=== PATIENT | male | born 1955 | race Caucasian/White ===

== ENCOUNTER 2021-09-13 09:37 | Emergency (ER) | payer MEDICARE, OTHER ==
[2021-09-13] MEDS ORDERED: DEXAMETHASONE SOD PHOSPHATE 10 MG/ML 1 ML VIAL IM STA (09:55)
[2021-09-13] MEDS ORDERED: guaiFENesin-Coden 100-10MG/5ML 10 ML CUP PO STA (09:55)
--- NOTE | 2021-09-13 10:18 | XR ---
EXAMINATION TYPE: XR chest 2V DATE OF EXAM: 09/13/2021 COMPARISON: None HISTORY: Cough TECHNIQUE: Frontal and lateral views of the chest are obtained. FINDINGS: There is subtle is mild increased interstitial opacity. Given the lack of prior study, acu te versus chronic interstitial changes is indeterminate. There is no consolidative opacity. There is no pleural effusion, pleural thickening or pneumothorax. The heart, pulmonary vasculature, mediastinum and hilum appear normal. The visualized osseous structu res are intact IMPRESSION: Subtle/mild interstitial opacity, acute versus chronic interstitial changes described ab ove. Clinical correlation is recommended.
--- NOTE | 2021-09-13 10:44 | ED ---
General Adult HPI - General Chief complaint: Shortness of Breath Stated complaint: covid+, post infusion-increase SOB Time Seen by Provider: 09/13/21 09:47 Source: patient, RN notes reviewed Mode of arrival: ambulatory Limitations: no limitations - History of Present Illness Initial comments: This a 66-year-old male presents emergency Department chief complaint of covid19. Patient states he is on day 8 of symptoms. Patient states that T test positive at his PCPs office. Patient was given Tessalon Perles. Patient states that he just consistently keeps coughing. Patient states that he felt short of breath today but states is more juices cough. Patient does admit that he's had fevers last 1 week but afebrile today denies any history of lung disease other than prior pneumonia. Patient denies being diabetic no significant GI symptoms other than mild diarrhea. Patient states she received monoclonal antibodies yesterday. - Related Data Previous Rx's Medication Instructions Recorded Albuterol Sulfate [Proair Hfa] 1 - 2 puff INHALATION Q4HR PRN 09/13/21 #8.5 gm Dexamethasone 6 mg PO DAILY #5 tablet 09/13/21 Promethaz-Cod 6.25-10 mg/5 ml 5 ml PO Q6HR PRN #100 ml 09/13/21 [Phenergan with Codeine] Allergies Allergy/AdvReac Type Severity Reaction Status Date / Time No Known Allergies Allergy Verified 09/13/21 09:39 Review of Systems ROS Statement: Those systems with pertinent positive or pertinent negative responses have been documented in the HPI. ROS Other: All systems not noted in ROS Statement are negative. Past Medical History Past Medical History: No Reported History History of Any Multi-Drug Resistant Organisms: None Reported Past Surgical History: No Surgical Hx Reported Past Psychological History: No Psychological Hx Reported Smoking Status: Never smoker Past Alcohol Use History: None Reported Past Drug Use History: None Reported General Exam Limitations: no limitations General appearance: alert, in no apparent distress Head exam: Present: atraumatic, normocephalic, normal inspection Eye exam: Present: normal appearance, PERRL, EOMI. Absent: scleral icterus, conjunctival injection, periorbital swelling ENT exam: Present: normal exam, normal oropharynx, mucous membranes moist Neck exam: Present: normal inspection, full ROM. Absent: tenderness, meningismus, lymphadenopathy Respiratory exam: Present: normal lung sounds bilaterally. Absent: respiratory distress, wheezes, rales, rhonchi, stridor Cardiovascular Exam: Present: regular rate, normal rhythm, normal heart sounds. Absent: systolic murmur, diastolic murmur, rubs, gallop, clicks Neurological exam: Present: alert Course Vital Signs 09/13/21 09:39 Temperature 97.8 F Pulse Rate 91 Respiratory 20 Rate Blood Pressure 143/71 O2 Sat by Pulse 96 Oximetry Medical Decision Making - Medical Decision Making X-rays essentially unremarkable, shows some chronic changes. Patient's vitals are within normal limits. Patient will be discharged in stable condition return parameters were discussed. Disposition Clinical Impression: COVID-19 Disposition: HOME SELF-CARE Condition: Stable Instructions (If sedation given, give patient instructions): Coronavirus Disease 2019 (COVID-19) Additional Instructions: Please return to the Emergency Department if symptoms worsen or any other arline rns. Prescriptions: Dexamethasone 6 mg PO DAILY #5 tablet Promethaz-Cod 6.25-10 mg/5 ml [Phenergan with Codeine] 5 ml PO Q6HR PRN #100 ml PRN Reason: Cough Albuterol Sulfate [Proair Hfa] 1 - 2 puff INHALATION Q4HR PRN #8.5 gm PRN Reason: difficulty in breathing Is patient prescribed a controlled substance at d/c from ED?: No Referrals: None,Stated [Primary Care Provider] - 1-2 days Time of Disposition: 10:37
[2021-09-13 11:34] VITALS: BP 107/63; PULSE 77; RESP 20; TEMP 98.7
== END 2021-09-13 11:34 | disposition home or self-care (01) ==
LOC: EC 09:37
DX: U07.1 COVID-19 (principal)
CPT/HCPCS: 71046; 99285; 96372; J1100

== ENCOUNTER 2023-07-18 03:13 | Emergency (ER) | payer MEDICARE, OTHER ==
[2023-07-18 03:51] VITALS: RESP 18
--- NOTE | 2023-07-18 04:20 | ED ---
General Adult HPI - General Chief complaint: Back Pain/Injury Stated complaint: Abdominal Pain Time Seen by Provider: 07/18/23 03:34 Source: patient Mode of arrival: ambulatory Limitations: no limitations - History of Present Illness Initial comments: Dictation was produced using [employer] dictation software. please excuse any grammatical, word or spelling errors. Chief Complaint: 67-year-old male presents to the ER for right-sided flank pain History of Present Illness: 67-year-old male denies any significant comorbidities states that for the last several hours he has had right-sided flank pain. States it feels like in his right flank radiates to his right groin. Did have some nausea no vomiting. Patient has no medical history. Denies any history of kidney stone. Denies any fever or constitutional symptoms. The ROS documented in this emergency department record has been reviewed and confirmed by me. Those systems with pertinent positive or negative responses have been documented in the HPI. All other systems are other negative and/or noncontributory. - Related Data Previous Rx's Medication Instructions Recorded Albuterol Sulfate [Proair Hfa] 1 - 2 puff INHALATION Q4HR PRN 09/13/21 #8.5 gm Promethaz-Cod 6.25-10 mg/5 ml 5 ml PO Q6HR PRN #100 ml 09/13/21 [Phenergan with Codeine] dexAMETHasone [Dexamethasone] 6 mg PO DAILY #5 tablet 09/13/21 HYDROcodone/APAP 5-325MG [[place] 1 tab PO Q6HR PRN 3 Days #12 tab 07/18/23 5-325] Ketorolac [Toradol] 10 mg PO Q6HR #24 tab 07/18/23 Allergies Allergy/AdvReac Type Severity Reaction Status Date / Time No Known Allergies Allergy Verified 07/18/23 03:32 Review of Systems ROS Statement: Those systems with pertinent positive or pertinent negative responses have been documented in the HPI. ROS Other: All systems not noted in ROS Statement are negative. Past Medical History Past Medical History: No Reported History History of Any Multi-Drug Resistant Organisms: None Reported Past Surgical History: No Surgical Hx Reported Past Psychological History: No Psychological Hx Reported Smoking Status: Never smoker Past Alcohol Use History: None Reported Past Drug Use History: None Reported General Exam - General Exam Comments Initial Comments: PHYSICAL EXAM: General Impression: Alert and oriented x3, not in acute distress HEENT: Normocephalic atraumatic, extra-ocular movements intact, pupils equal and reactive to light bilaterally, mucous membranes moist. Cardiovascular: Heart regular rate and rhythm Chest: Able to complete full sentences, no retractions, no tachypnea Abdomen: abdomen soft, non-tender, non-distended, no organomegaly Musculoskeletal: Pulses present and equal in all extremities, no peripheral edema Motor: no focal deficits noted Neurological: CN II-XII grossly intact, no focal motor or sensory deficits noted Skin: Intact with no visualized rashes Psych: Normal affect and mood Limitations: no limitations Course Vital Signs 07/18/23 07/18/23 03:31 08:11 Temperature 97.8 F 98.1 F Pulse Rate 69 67 Respiratory 18 18 Rate Blood Pressure 161/85 150/79 O2 Sat by Pulse 98 98 Oximetry Medical Decision Making - Medical Decision Making Was pt. sent in by a medical professional or institution (, PA, CRIMINAL INTELLIGENCE ANALYST, urgent care, hospital, or care home...) When possible be specific @ -No Did you speak to anyone other than the patient for history (EMS, parent, family, police, friend...)? What history was obtained from this source @ -No Did you review nursing and triage notes (agree or disagree)? Why? @ -I reviewed and agree with nursing and triage notes Were old charts reviewed (outside hosp., previous admission, EMS record, old EKG, old radiological studies, urgent care reports/EKG's, care home records)? Report findings @ -No old charts were reviewed Differential Diagnosis (chest pain, altered mental status, abdominal pain women, abdominal pain men, vaginal bleeding, musculoskeletal, weakness, fever, dyspnea, syncope, headache, dizziness, GI bleed, back pain, seizure, CVA, palpatations, mental health)? @ -Differential Abdominal Pain Men: Appendicitis, cholecystitis, diverticulosis, ischemic bowel, pancreatitis, hepatitis, UTI, gastroenteritis, AAA, incarcerated hernia, bowel obstruction, constipation, inflammatory bowel, hepatitis, peptic ulcer disease, splenic infarction, perforated viscus, testicular torsion, this is not meant to be an all-inclusive list EKG interpreted by me (3pts min.). @ -None done X-rays interpreted by me (1pt min.). @ -None done CT interpreted by me (1pt min.). @ -CT of the abdomen and pelvis shows nephrolithiasis obstructing measuring approximately 7-8 mm U/S interpreted by me (1pt. min.). @ -None done What testing was considered but not performed or refused? (CT, X-rays, U/S, labs)? Why? @ -None What meds were considered but not given or refused? Why? @ -None Did you discuss the management of the patient with other professionals (professionals i.e. , PA, CRIMINAL INTELLIGENCE ANALYST, lab, RT, psych nurse, foster care social worker, farm field manager, teacher, president and chief executive officer, case management director)? Give summary @ -No Was smoking cessation discussed for >3mins.? @ -No Was critical care preformed (if so, how long)? @ -No Were there social determinants of health that impacted care today? How? (Homelessness, low income, unemployed, alcoholism, drug addiction, transportation, low edu. Level, literacy, decrease access to med. care, usp, rehab)? @ -No Was there de-escalation of care discussed even if they declined (Discuss DNR or withdrawal of care, Hospice)? DNR status @ -No What co-morbidities impacted this encounter? (DM, HTN, Smoking, COPD, CAD, Cancer, CVA, ARF, Chemo, Hep., AIDS, mental health diagnosis, sleep apnea, morbid obesity)? @ -None Was patient admitted / discharged? Hospital course, mention meds given and route, prescriptions, significant lab abnormalities, going to OR and other pertinent info. @ -67-year-old male presents to the emergency Department with acute onset flank pain that radiates to the groin. Clinical presentation highly suspicious for nephrolithiasis. He does present with classic associated symptoms of nausea and colicky pain. White count 16.7 likely secondary to stress. Metabolic panel is within acceptable limits. No elevated renal function. He has large amount of blood in his urine. CT shows hydronephrosis and hydroureter with mid ureteral stone measuring proximally 78 mm. Patient given IV fluids analgesics. He is stable at the bedside. Disposition options were discussed is agreeable with d carla. Return precautions discussed. Given referral to urology. Undiagnosed new problem with uncertain prognosis? @ -No Drug Therapy requiring intensive monitoring for toxicity (Heparin, Nitro, Insulin, Cardizem)? @ -No Were any procedures done? @ -No Diagnosis/symptom? Acute, or Chronic, or Acute on Chronic? Uncomplicated (without systemic symptoms) or Complicated (systemic symptoms)? @ -Obstructing kidney stone Side effects of treatment? @ -No Exacerbation, Progression, or Severe Exacerbation? @ -No Poses a threat to life or bodily function? How? (Chest pain, [place], [place], pneumonia, PE, COPD, DKA, ARF, appy, cholecystitis, CVA, Diverticulitis, Homicidal, Suicidal, threat to staff... and all critical care pts) @ -yes - Lab Data Result diagrams: 07/18/23 04:24 07/18/23 04:24 Lab Results 07/18/23 07/18/23 07/18/23 Range/Units 04:24 04:24 04:24 WBC 16.7 H (3.8-10.6) k/uL RBC 4.27 L (4.30-5.90) m/uL Hgb 13.6 (13.0-17.5) gm/dL Hct 39.7 (39.0-53.0) % MCV 93.0 (80.0-100.0) fL MCH 31.9 (25.0-35.0) pg MCHC 34.4 (31.0-37.0) g/dL RDW 12.0 (11.5-15.5) % Plt Count 245 (150-450) k/uL MPV 7.3 Neutrophils % 84 % Lymphocytes % 9 % Monocytes % 5 % Eosinophils % 1 % Basophils % 0 % Neutrophils # 14.0 H (1.3-7.7) k/uL Lymphocytes # 1.5 (1.0-4.8) k/uL Monocytes # 0.9 (0-1.0) k/uL Eosinophils # 0.1 (0-0.7) k/uL Basophils # 0.1 (0-0.2) k/uL Sodium 138 (137-145) mmol/L Potassium 4.6 (3.5-5.1) mmol/L Chloride 105 (98-107) mmol/L Carbon Dioxide 22 (22-30) mmol/L Anion Gap 11 mmol/L BUN 21 H (9-20) mg/dL Creatinine 1.06 (0.66-1.25) mg/dL Est GFR (CKD-EPI)AfAm 83 (>60 ml/min/1.73 sqM) Est GFR (CKD-EPI)NonAf 72 (>60 ml/min/1.73 sqM) Glucose 126 H (74-99) mg/dL Calcium 9.3 (8.4-10.2) mg/dL Total Bilirubin 0.6 (0.2-1.3) mg/dL AST 28 (17-59) U/L ALT 37 (4-49) U/L Alkaline Phosphatase 81 (38-126) U/L Total Protein 6.5 (6.3-8.2) g/dL Albumin 3.9 (3.5-5.0) g/dL Lipase 60 (23-300) U/L Urine Color Yellow Urine Appearance Cloudy (Clear) Urine pH 8.0 (5.0-8.0) Ur Specific [place] 1.010 (1.001-1.035) Urine Protein Trace H (Negative) Urine Glucose (UA) 2+ H (Negative) Urine Ketones Negative (Negative) Urine Blood Large H (Negative) Urine Nitrite Negative (Negative) Urine Bilirubin Negative (Negative) Urine Urobilinogen 0.2 (<2.0) mg/dL Ur Leukocyte Esterase Trace H (Negative) Urine RBC >182 H (0-5) /hpf Urine WBC 7 H (0-5) /hpf Ur Squamous Epith Cells <1 (0-4) /hpf Amorphous Sediment Occasional H (None) /hpf Urine Bacteria Rare H (None) /hpf Granular Casts 3 (0) /lpf Urine Mucus Rare H (None) /hpf Disposition Clinical Impression: Nephrolithiasis Disposition: HOME SELF-CARE Condition: Fair Instructions (If sedation given, give patient instructions): Kidney Stones (ED) Prescriptions: HYDROcodone/APAP 5-325MG [[place] 5-325] 1 tab PO Q6HR PRN 3 Days #12 tab PRN Reason: pain not controlled w toradol Ketorolac [Toradol] 10 mg PO Q6HR #24 tab Is patient prescribed a controlled substance at d/c from ED?: Yes If prescribed controlled substance>3 days was MAPS reviewed?: Prescribed <3 Days Referrals: Chino Robertson MD [STAFF PHYSICIAN] - 1-2 days Time of Disposition: 07:55
[2023-07-18 04:39] LABS: Basophils # (A) 0.1 k/uL (0-0.2); Basophils % (A) 0 %; Eosinophils # (A) 0.1 k/uL (0-0.7); Eosinophils % (A) 1 %; HCT 39.7 % (39.0-53.0); HGB 13.6 gm/dL (13.0-17.5); Lymphocytes # (A) 1.5 k/uL (1.0-4.8); Lymphocytes % (A) 9 %; MCH 31.9 pg (25.0-35.0); MCHC 34.4 g/dL (31.0-37.0); Mean Platelet Volume 7.3; Monocytes # (A) 0.9 k/uL (0-1.0); Monocytes % (A) 5 %; Neutrophils % (A) 84 %; Platelet Count 245 k/uL (150-450); RBC 4.27 m/uL (4.30-5.90); WBC 16.7 k/uL (3.8-10.6)
[2023-07-18] MEDS ORDERED: SODIUM CHLORIDE 0.9% 1,000 ML IV STA (04:49)
[2023-07-18] MEDS ORDERED: KETOROLAC 15 MG/ML 1 ML VIAL IVP STA ×2 (04:49→07:58)
[2023-07-18 04:51] LABS: ALT 37 U/L (4-49); AST 28 U/L (17-59); African American GFR (CKD) 83 (>60 ml/min/1.73 sqM); Albumin 3.9 g/dL (3.5-5.0); Alkaline Phosphatase 81 U/L (38-126); Anion Gap 11 mmol/L; Blood Urea Nitrogen 21 mg/dL (9-20); Calcium 9.3 mg/dL (8.4-10.2); Carbon Dioxide 22 mmol/L (22-30); Chloride 105 mmol/L (98-107); Glucose 126 mg/dL (74-99); Lipase 60 U/L (23-300); Non-African American GFR(CKD) 72 (>60 ml/min/1.73 sqM); Potassium 4.6 mmol/L (3.5-5.1); Sodium 138 mmol/L (137-145); Total Bilirubin 0.6 mg/dL (0.2-1.3); Total Protein 6.5 g/dL (6.3-8.2)
[2023-07-18 05:40] LABS: Amorphous Sediment,Urine Occasional /hpf; Bacteria,Urine Rare /hpf; Granular Casts,Urine 3 /lpf (0); Mucus,Urine Rare /hpf; RBC,Urine >182 /hpf (0-5); Squamous Epithelial Cell,Urine <1 /hpf (0-4); WBC,Urine 7 /hpf (0-5)
[2023-07-18 05:50] LABS: Appearance,Urine Cloudy (Clear); Bilirubin,Urine Negative (Negative); Blood,Urine Large (Negative); Color,Urine Yellow; Glucose,Urine (UA) 2+ (Negative); Ketones,Urine Negative (Negative); Leukocyte Esterase,Urine Trace (Negative); Nitrite,Urine Negative (Negative); Protein,Urine Trace (Negative); Urobilinogen,Urine 0.2 mg/dL (<2.0)
[2023-07-18 08:20] VITALS: BP 150/79; PULSE 67; TEMP 98.1
--- NOTE | 2023-07-18 08:39 | CT ---
EXAMINATION TYPE: CT abdomen pelvis wo con DATE OF EXAM: 07/18/2023 COMPARISON: None INDICATION: Right flank pain DLP: 687.5 mGycm, Automated exposure control for dose reduction was used. CONTRAST: 0 mL of Isovue 300. Study performed without Oral Contrast TECHNIQUE: Axial images were obtained from above the diaphragm to the pubic rami in the axial plane a t 5 mm thick sections. Reconstructed images are reviewed on the computer in the coronal plane. FINDINGS: Limited CT sections are obtained the lung bases. The lung bases are clear. CT ABDOMEN: There is some mild increased density within the mid posterior mesentery are not associate d with a particular structure. Some mild mesenteric inflammatory change may be present. Liver: Normal Spleen: Normal Pancreas: Normal Adrenal glands: The adrenal glands are normal. Gallbladder: Normal Kidneys: There is a mild right hydronephrosis and hydroureter. Hydroureter extends to 0.7 cm mid uret eral calcification causing obstruction. More distal ureter is of normal appearance. Urinary bladder i s incompletely distended. No hydronephrosis or hydroureter is present on the left. There is a left re nal cyst the inferior pole left kidney measuring 4.8 x 3.3 cm. No renal stones are evident.. Aorta: Normal Inferior vena cava: Normal. CT PELVIS: Multiple diverticuli within the sigmoid colon. Fecal debris is within the colon. Small bowel loops ar e normal. No obstruction is evident. Study is without oral contrast limiting bowel evaluation. Appendix: Normal as visualized. Urinary bladder: Decompressed with limited evaluation. Genitourinary structures: Prostate is mildly prominent with calcification. Osseous structures: No suspicious lytic or sclerotic lesions. IMPRESSION: 1. 0.7 cm mid right ureteral calcification with mild hydronephrosis and hydroureter. 2. Some mild nonspecific inflammatory change may be within the mid mesentery.
== END 2023-07-18 08:35 | disposition home or self-care (01) ==
LOC: EC 03:13
DX: N20.0 Calculus of kidney (principal)
CPT/HCPCS: 36415; 80053; 83690; 85025; 81001; 74176; 99284; 96374; 96376; 96361; J1885

== ENCOUNTER → 2023-07-26 | Outpatient (CLI) | payer MEDICARE, OTHER ==
--- NOTE | 2023-07-26 09:57 | XR ---
EXAMINATION TYPE: XR KUB DATE OF EXAM: 07/26/2023 COMPARISON: 07/18/2023 HISTORY: Right ureteral calculus TECHNIQUE: One view abdominal series FINDINGS: Hypertrophic and degenerative change of the spine. The bowel gas pattern is nonspecific. Calcificati ons in the pelvis appear vascular. Kidneys: No suspicious calcifications seen. There is a calcification measuring the diameter 4.4 mm between the right third and fourth transverse processes similar in position to prior CT scan. IMPRESSION: 1. Stable position of 4.4 mm in diameter mid right ureteral calculus.
== END | disposition home or self-care (01) ==
LOC: RADXRMAIN 09:33
PROVIDERS: ATTEND Urology
DX: N20.1 Calculus of ureter (principal)
CPT/HCPCS: 74018

== ENCOUNTER → 2023-08-02 | Day surgery (SDC) | payer MEDICARE, OTHER ==
--- NOTE | 2023-07-29 17:17 | P.GSHP ---
History of Present Illness H&P Date: 07/29/23 Chief Complaint: Right renal colic The patient is a 67-year-old white male with no prior history of urolithiasis. On 07/17/2023 he experienced acute onset of right flank pain. A CT scan showed mild right hydronephrosis due to a 7 mm right mid-ureteral calculus. A KUB x-ray performed on 07/26/2023 showed the calculus to measure 5 x 9 mm, unchanged in position. He was offered alternative treatment options, including medical expulsion therapy, ureteroscopy with laser lithotripsy, and extracorporal shockwave lithotripsy (ESWL). - Constitutional Constitutional: Denies chills, Denies fever - Gastrointestinal Gastrointestinal: Reports nausea, Denies vomiting - Genitourinary (Male) Genitourinary: Reports flank pain, Reports kidney stones, Denies dysuria, Denies hematuria Past Medical History Past Medical History: GERD/Reflux, Hyperlipidemia Additional Past Medical History / Comment(s): kidney stones, mitral valve prolapse, recent steroids for poison sumac exposure. recent ?noro virus. recent back pain from heavy lifting. hx diverticulitis History of Any Multi-Drug Resistant Organisms: None Reported Past Surgical History: No Surgical Hx Reported Additional Past Surgical History / Comment(s): colonscopy. Past Anesthesia/Blood Transfusion Reactions: No Reported Reaction Smoking Status: Former smoker - Past Family History Sister(s) Family Medical History: Cancer Additional Family Medical History / Comment(s): lung cancer. mitral valve issue Mother Family Medical History: Cancer Additional Family Medical History / Comment(s): lung cancer Father Family Medical History: Cancer Additional Family Medical History / Comment(s): cardiomyopathy Medications and Allergies Home Medications Medication Instructions Recorded Confirmed Type HYDROcodone/APAP 5-325MG [[place] 1 tab PO Q6HR PRN 3 Days #12 tab 07/18/23 07/28/23 Rx 5-325] Fenofibrate,Micronized 130 mg PO DAILY 07/28/23 07/28/23 History [Fenofibrate] Otc Prilosec 1 tab PO DAILY PRN 07/28/23 07/28/23 History Tamsulosin HCl [Flomax] 0.4 mg PO HS 07/28/23 07/28/23 History Unk Fish Oil 1 tab PO DAILY 07/28/23 07/28/23 History Unk Multi Vitamin 1 tab PO DAILY 07/28/23 07/28/23 History Allergies Allergy/AdvReac Type Severity Reaction Status Date / Time No Known Allergies Allergy Verified 07/28/23 11:12 Surgical - Exam - General well developed, well nourished, no distress - Respiratory normal respiratory effort - Abdomen Abdomen: soft, non tender, no guarding, no rigid, no rebound - Genitourinary normal penis with no external lesions, testicles non-tender - Psychiatric oriented to time, oriented to person, oriented to place, speech is normal, memory intact Results - Imaging Abdominal x-ray: report reviewed, image reviewed CT scan - abdomen: report reviewed, image reviewed Assessment and Plan (1) Calculus of ureter Status: Acute Code(s): N20.1 - CALCULUS OF URETER SNOMED Code(s): 29674273 Plan: Alternative treatment options for a ureteral calculus include observation with spontaneous passage and ureteroscopy with stone manipulation. The pros, cons, and risks of each approach have been reviewed. Following a lengthy discussion, as a result of shared decision making, the patient has elected to proceed with ESWL. The procedure has been reviewed in detail, and he has been made aware of potential risks which include anesthesia, collateral damage to other organs, treatment failure, and [place]. The possible need for a secondary intervention such as a stent or ureteroscopy was discussed.
[~2023-08-02] MED LIST: FAMOTIDINE 20 MG/2 ML VIAL IVP ONE; FUROSEMIDE 10 MG/ML 2 ML VIAL ONE; GLYCOPYRROLATE 0.2 MG/ML 2 ML VIAL ONE; KETAMINE HCL IN 0.9 % NACL 50 MG/5 ML SYRINGE ONE; LACTATED RINGERS 1,000 ML IV SCH; LIDOCAINE 1% (10MG/ML) FOR IV START INTRADERMA PRN; MIDAZOLAM 2 MG/2 ML VIAL IV PRN; MIDAZOLAM 2 MG/2 ML VIAL ONE; ONDANSETRON 4 MG/2 ML VIAL IVP ONE; PROPOFOL 10 MG/ML 20 ML VIAL IV ONE; fentaNYL (PF) 50 MCG/ML 2 ML AMP ONE
--- NOTE | 2023-08-02 08:32 | XR ---
EXAMINATION TYPE: XR KUB DATE OF EXAM: 08/02/2023 COMPARISON: 07/26/2023 HISTORY: Preop TECHNIQUE: One view abdominal series FINDINGS: The osseous structures are intact. The bowel gas pattern is nonspecific. There is a calcification ad jacent to the L3-L4 disc space on the right measuring 4.4 mm in diameter unchanged in position. Vascu lar calcifications in the pelvis. Kidneys: No suspicious definitive calcifications.. IMPRESSION: 1. Stable mid right ureteral calculus measuring a diameter 4.4 mm.
[2023-08-02 09:11] LABS: Glucose,Whole Blood 99 mg/dL (70-110)
[2023-08-02 09:18] VITALS: TEMP 97.8
--- NOTE | 2023-08-02 09:59 | P.OP ---
Date of Procedure: 08/02/23 Preoperative Diagnosis: Right ureteral calculus Postoperative Diagnosis: Same Procedure(s) Performed: Right extracorporal shockwave lithotripsy (ESWL) Anesthesia: MAC Surgeon: Eric Lyn Estimated Blood Loss (ml): 0 IV fluids (ml): 400 Pathology: none sent Condition: stable Disposition: PACU Indications for Procedure: The patient is a 67-year-old white male with no prior history of urolithiasis. On 07/17/2023 he experienced acute onset of right flank pain. A CT scan showed mild right hydronephrosis due to a 7 mm right mid-ureteral calculus. A KUB x- ray performed on 07/26/2023 showed the calculus to measure 5 x 9 mm, unchanged in position. He was offered alternative treatment options, including medical expulsion therapy, ureteroscopy with laser lithotripsy, and extracorporal shockwave lithotripsy (ESWL). Operative Findings: Calculus fragments well and is no longer seen at the conclusion of the procedure. Description of Procedure: The patient was taken to the operating room and placed on the Dornier CleverSet Delta II lithotripter in the supine position. The calculus was seen on biplanar fluoroscopy. Lasix 10 mg was given intravenously. Once the patient was properly positioned and sedated, lithotripsy was performed. The energy level was gradually increased per protocol, to an energy level of 6. A total of 2000 shocks were given at a rate of 80 shocks per minute. Fluoroscopy was utilized at a minimum to ensure proper positioning and determine the treatment status. The calculus could no longer be seen on fluoroscopy at the conclusion of the procedure, consistent with fragmentation. The patient tolerated the procedure well was taken to the recovery room in stable condition. Instructions were given to strain the urine, and the patient will follow-up within one week.
[2023-08-02 10:40] VITALS: RESP 12
[2023-08-02 11:29] VITALS: BP 154/82; PULSE 61
== END | disposition home or self-care (01) ==
LOC: ORWHC2ENDO 08:05
PROVIDERS: ATTEND Urology
DX: N20.1 Calculus of ureter (principal); E78.5 Hyperlipidemia, unspecified; K21.9 Gastro-esophageal reflux disease without esophagitis; Z87.442 Personal history of urinary calculi; Z87.891 Personal history of nicotine dependence; Z79.899 Other long term (current) drug therapy
CPT/HCPCS: 74018; 50590; J2250; J1940; J2405; J3010; J3490; J2704

== ENCOUNTER → 2023-08-11 | Outpatient (CLI) | payer MEDICARE, OTHER ==
--- NOTE | 2023-08-11 15:12 | XR ---
EXAMINATION TYPE: XR KUB DATE OF EXAM: 08/11/2023 11:50 AM CLINICAL INDICATION:Male, 68 years old with history of N20.1; COMPARISON: 08/02/2023. TECHNIQUE: One radiographic view of the abdomen was obtained. FINDINGS: Moderate stool burden throughout the colon. The bowel gas pattern is nonspecific without di lated loops of small or large bowel. There is no evidence for organomegaly or pneumoperitoneum. The osseous structures are intact. No abnormal calcifications are present. Fecal material and gas are de monstrated throughout the colon and rectum. Mild degeneration changes of spine. Mild hip osteophyte formation this. Acetabulum. IMPRESSION: Moderate amount of stool in the colon, otherwise nonspecific bowel gas pattern without radiographic e vidence for acute process.
== END | disposition home or self-care (01) ==
LOC: RADXRMAIN 11:39
PROVIDERS: ATTEND Urology
DX: N20.1 Calculus of ureter (principal)
CPT/HCPCS: 74018

== ENCOUNTER 2024-03-08 12:11 | Emergency (ER) | payer MEDICARE, OTHER ==
[2024-03-08 12:21] VITALS: RESP 18; TEMP 97.9
--- NOTE | 2024-03-08 13:46 | US ---
EXAMINATION TYPE: US venous doppler duplex UE RT DATE OF EXAM: 03/08/2024 COMPARISON: NONE CLINICAL INDICATION: Male, 68 years old with history of pain, swelling; Pain and swelling since patie nt had bug bite 4 days ago. SIDE PERFORMED: Right arm Right Arm: No evidence of DVT. Edema seen within right forearm at bug bite. IMPRESSION: No diagnostic evidence of DVT.
--- NOTE | 2024-03-08 14:08 | ED ---
Skin/Abscess/FB HPI - General Chief complaint: Skin/Abscess/Foreign Body Stated complaint: bug bite/R arm swelling/pain Time Seen by Provider: 03/08/24 12:35 Source: patient, RN notes reviewed Mode of arrival: ambulatory Limitations: no limitations - History of Present Illness Initial comments: 68-year-old male presents emerged part complaining of right arm infection, numbness. Patient states that has been dealing with this was placed on doxycycline which redness is improving but states his arm still swollen and it felt tingly today. Denies any chest pain shortness of breath neck pain headache or dizziness no weakness no discoloration other than the redness he had. - Related Data Home Medications Medication Instructions Recorded Confirmed Fenofibrate,Micronized 130 mg PO DAILY 07/28/23 07/28/23 [Fenofibrate] Otc Prilosec 1 tab PO DAILY PRN 07/28/23 07/28/23 Tamsulosin HCl [Flomax] 0.4 mg PO HS 07/28/23 07/28/23 Unk Fish Oil 1 tab PO DAILY 07/28/23 07/28/23 Unk Multi Vitamin 1 tab PO DAILY 07/28/23 07/28/23 Previous Rx's Medication Instructions Recorded HYDROcodone/APAP 5-325MG [Alcova 1 tab PO Q6HR PRN 3 Days #12 tab 07/18/23 5-325] Triamcinolone 0.1% Cream [Kenalog 1 applicatio TOPICAL BID #15 gram 03/08/24 0.1% Cream] Allergies Allergy/AdvReac Type Severity Reaction Status Date / Time No Known Allergies Allergy Verified 08/02/23 08:53 Review of Systems ROS Statement: Those systems with pertinent positive or pertinent negative responses have been documented in the HPI. ROS Other: All systems not noted in ROS Statement are negative. Past Medical History Past Medical History: GERD/Reflux, Hyperlipidemia Additional Past Medical History / Comment(s): kidney stones, mitral valve prolapse, recent steroids for poison [place] exposure. recent ?noro virus. recent back pain from heavy lifting. hx diverticulitis History of Any Multi-Drug Resistant Organisms: None Reported Past Surgical History: No Surgical Hx Reported Additional Past Surgical History / Comment(s): colonscopy. Past Anesthesia/Blood Transfusion Reactions: No Reported Reaction Past Psychological History: No Psychological Hx Reported Smoking Status: Former smoker Past Alcohol Use History: None Reported Past Drug Use History: None Reported - Past Family History Sister(s) Family Medical History: Cancer Additional Family Medical History / Comment(s): lung cancer. mitral valve issue Mother Family Medical History: Cancer Additional Family Medical History / Comment(s): lung cancer Father Family Medical History: Cancer Additional Family Medical History / Comment(s): cardiomyopathy General Exam Limitations: no limitations General appearance: alert, in no apparent distress Head exam: Present: atraumatic, normocephalic, normal inspection Respiratory exam: Present: normal lung sounds bilaterally. Absent: respiratory distress, wheezes, rales, rhonchi, stridor Cardiovascular Exam: Present: regular rate, normal rhythm, normal heart sounds. Absent: systolic murmur, diastolic murmur, rubs, gallop, clicks Extremities exam: Present: other (Right forearm there is erythema surrounding a 1 cm raised area there is no streaking noted towards elbow there is outline where prior gauze tape was. 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 sent in by a medical professional or institution (Dr. PA, EMPLOYMENT ATTORNEY, urgent care, hospital, or intermediate...) When possible be specific @ -No Did you speak to anyone other than the patient for history (EMS, parent, family, police, friend...)? What history was obtained from this source @ -No Did you review nursing and triage notes (agree or disagree)? Why? @ -I reviewed and agree with nursing and triage notes Were old charts reviewed (outside hosp., previous admission, EMS record, old EKG, old radiological studies, urgent care reports/EKG's, intermediate records)? Report findings @ -No old charts were reviewed Differential Diagnosis (chest pain, altered mental status, abdominal pain women, abdominal pain men, vaginal bleeding, weakness, fever, dyspnea, syncope, headache, dizziness, GI bleed, back pain, seizure, CVA, palpatations, mental health, musculoskeletal)? @ -DVT abscess cellulitis, superficial thrombophlebitis EKG interpreted by me (3pts min.). @ -None X-rays interpreted by me (1pt min.). @ -None done CT interpreted by me (1pt min.). @ -None done U/S interpreted by me (1pt. min.). @ -Ultrasound venous Doppler right arm negative for acute DVT, no focal collection What testing was considered but not performed or refused? (CT, X-rays, U/S, labs)? Why? @ -None What meds were considered but not given or refused? Why? @ -None Did you discuss the management of the patient with other professionals (professionals i.e. DrJovani, PA, EMPLOYMENT ATTORNEY, lab, RT, psych nurse, social director, matrix repairer, teacher, major gifts officer, therapeutic case manager)? Give summary @ -No Was smoking cessation discussed for >3mins.? @ -No Was critical care preformed (if so, how long)? @ -No Were there social determinants of health that impacted care today? How? (Homelessness, low income, unemployed, alcoholism, drug addiction, transportation, low edu. Level, literacy, decrease access to med. care, care home, rehab)? @ -No Was there de-escalation of care discussed even if they declined (Discuss DNR or withdrawal of care, Hospice)? DNR status @ -No What co-morbidities impacted this encounter? (DM, HTN, Smoking, COPD, CAD, Ca ncer, CVA, ARF, Chemo, Hep., AIDS, mental health diagnosis, sleep apnea, morbid obesity)? @ -None Was patient admitted / discharged? Hospital course, mention meds given and route, prescriptions, significant lab abnormalities, going to OR and other pertinent info. @ -Discharge patient presenting for right arm evaluation patient does have localized area of surgical symptoms and possible cellulitis patient is on antibiotics which is improving patient was prescribed Steroids but did not start them. Patient is neurovascularly intact will be discharged in stable condition. Undiagnosed new problem with uncertain prognosis? @ -No Drug Therapy requiring intensive monitoring for toxicity (Heparin, Nitro, Insulin, Cardizem)? @ -No Were any procedures done? @ -No Diagnosis/symptom? @ -Cellulitis Acute, or Chronic, or Acute on Chronic? @ -Acute Uncomplicated (without systemic symptoms) or Complicated (systemic symptoms)? @ -uncomplicated Side effects of treatment? @ -No Exacerbation, Progression, or Severe Exacerbation? @ -No Poses a threat to life or bodily function? How? (Chest pain, [place], NH, pneumonia, PE, COPD, DKA, ARF, appy, cholecystitis, CVA, Diverticulitis, Homicidal, Suicidal, threat to staff... and all critical care pts) @ -No Disposition Clinical Impression: Right arm cellulitis, Edema of right forearm Disposition: HOME SELF-CARE Condition: Stable Instructions (If sedation given, give patient instructions): Cellulitis (ED) Additional Instructions: Please return to the Emergency Department if symptoms worsen or any other concerns. Prescriptions: Triamcinolone 0.1% Cream [Kenalog 0.1% Cream] 1 applicatio TOPICAL BID #15 gram Is patient prescribed a controlled substance at d/c from ED?: No Referrals: Elmo Don MD [Primary Care Provider] - 1-2 days Time of Disposition: 14:08
[2024-03-08 14:23] VITALS: BP 142/77; PULSE 64
== END 2024-03-08 14:22 | disposition home or self-care (01) ==
LOC: EC 12:11
DX: L03.113 Cellulitis of right upper limb (principal); Z87.891 Personal history of nicotine dependence
CPT/HCPCS: 99283

== ENCOUNTER → 2024-07-07 | Outpatient (CLI) | payer MEDICARE, OTHER ==
--- NOTE | 2024-07-09 07:32 | CA ---
Transthoracic Echo Report Name: Malcom Juarez Age: 68 Gender: M : 1955 Exam Date: 07/07/2024 15:36 Exam Location: [facility] Ht (in): 68 Wt (lb): 174 Ordering Physician: Elmo Don MD Attending/Referring Phys: Natanael Santos MD Accounts Receivable Accountant Crystal Bennett RDCS Procedure CPT: Indications: R07.9 CHEST PAIN, UNSPEC J44.9 CHRONIC OBSTRUCTIVE Cardiac Hx: Technical Quality: Fair Contrast 1: Total Dose (mL): Contrast 2: Total Dose (mL): MEASUREMENTS (Male / Female) Normal Values 2D ECHO LV Diastolic Diameter PLAX 4.6 cm 4.2 - 5.9 / 3.9 - 5.3 cm LV Systolic Diameter PLAX 2.8 cm IVS Diastolic Thickness 1.2 cm 0.6 - 1.0 / 0.6 - 0.9 cm LVPW Diastolic Thickness 1.1 cm 0.6 - 1.0 / 0.6 - 0.9 cm LV Relative Wall Thickness 0.5 RV Internal Dim ED PLAX 3.5 cm LVOT Diameter 2.2 cm LV Diastolic Volume MOD BP 91.2 cm??? 67 - 155 / 56 - 104 cm??? LV Systolic Volume MOD BP 38.4 cm??? 22 - 58 / 19 - 49 cm??? LV Ejection Fraction MOD BP 57.9 % >= 55 % LV Cardiac Index MOD BP 2233.8 cm???/min???m??? LV Diastolic Volume MOD 4C 83.1 cm??? LV Systolic Volume MOD 4C 37.3 cm??? LV Ejection Fraction MOD 4C 55.2 % LV Cardiac Index MOD 4C 1942.1 cm???/min???m??? LV Diastolic Length 4C 7.4 cm LV Systolic Length 4C 6.4 cm LV Diastolic Volume MOD 2C 91.0 cm??? LV Systolic Volume MOD 2C 38.8 cm??? LV Ejection Fraction MOD 2C 57.3 % LV Cardiac Index MOD 2C 2209.8 cm???/min???m??? LV Diastolic Length 2C 8.3 cm LV Systolic Length 2C 6.6 cm LA Volume 64.8 cm??? 18 - 58 / 22 - 52 cm??? LA Volume Index 33.1 cm???/m??? 16 - 28 cm???/m??? DOPPLER AV Peak Velocity 85.2 cm/s AV Peak Gradient 2.9 mmHg AV Mean Velocity 60.6 cm/s AV Mean Gradient 1.6 mmHg AV Velocity Time Integral 18.0 cm LVOT Peak Velocity 88.0 cm/s LVOT Peak Gradient 3.1 mmHg LVOT Velocity Time Integral 19.7 cm LVOT Stroke Volume 72.7 cm??? LVOT Stroke Volume Index 37.7 ml/m??? LVOT Cardiac Index 3077.9 cm???/min???m??? AV Area Cont Eq vti 4.0 cm??? AV Area Cont Eq pk 3.8 cm??? MV Area PHT 2.4 cm??? Mitral E Point Velocity 56.6 cm/s Mitral A Point Velocity 48.3 cm/s Mitral E to A Ratio 1.2 MV Deceleration Time 321.2 ms MV E' Velocity 5.5 cm/s Mitral E to MV E' Ratio 10.3 FINDINGS Left Ventricle Mildly increased septal wall thickness. Left ventricular cavity size normal. Normal left ventricular systolic function with no obvious regional wall motion abnormalities. Grade 1 diastolic dysfunction. Left ventricular ejection fraction is estimated at 55-60 %. Right Ventricle Right ventricular systolic pressure within normal limits. Normal function. Normal TAPSE and S' Right Atrium Normal right atrial size. Left Atrium Mildly increased left atrial volume. Mitral Valve Structurally normal mitral valve. Mild mitral annular calcification. Trace to mild mitral regurgitation. Aortic Valve Trileaflet aortic valve. No aortic valve stenosis or regurgitation. Tricuspid Valve Structurally normal tricuspid valve. Mild tricuspid regurgitation. Pulmonic Valve Structurally normal pulmonic valve. Pericardium No pericardial effusion. Aorta Normal size aortic root and proximal ascending aorta. CONCLUSIONS Left ventricular ejection fraction is estimated at 55-60 %. Grade 1 diastolic dysfunction. Mild LVH No obvious regional wall motion abnormality No significant valvular dysfunction Normal RV size and systolic function Previewed by: Dr Hilton Whitfield (Electronically Signed) Final Date: 09 July 2024 07:31
--- NOTE | 2024-07-09 14:03 | CT ---
EXAMINATION TYPE: CT chest wo con DATE OF EXAM: 07/08/2024 11:01 AM COMPARISON: 09/13/2021 CLINICAL INDICATION: Male, 68 years old with history of R07.9 CHEST PAIN, UNSPEC J44.9 CHRONIC OBSTRU CTIVE; PHH, chest pain, h/o COPD TECHNIQUE: Multiple axial images were obtained through the chest. Sagittal and coronal reformats were created for review. MIP was performed on a separate workstation. Contrast used: mL of (None if empty) Oral contrast used: (None if empty) CT DLP: 361.8 mGycm, Automated exposure control for dose reduction was used. FINDINGS: LUNGS/ PLEURA: No focal consolidation, pneumothorax or pleural effusion. No significant evidence of e mphysema or COPD. AIRWAY: Patent and unremarkable. No bronchial wall thickening or dilation. HEART: Size within normal limits. MEDIASTINUM: No gross evidence of adenopathy. VASCULATURE: No aortic aneurysm. MUSCULOSKELETAL: No acute osseous abnormalities SOFT TISSUES/LYMPH NODES: Unremarkable. LOWER NECK: No significant findings. UPPER ABDOMEN: Diffuse low-attenuation to the liver parenchyma. IMPRESSION: 1. No acute thoracic process. 2. Hepatic steatosis. Follow up recommendations for incidental pulmonary nodules, if there are any, are per [employer] [place] [employer] [employer] or [place]. https://radiopaedia.org/articles/fjxzsrlzvy-[email or web address]?lang=us [facility] Romeo Melissa, , 07/09/2024 2:01 PM
== END | disposition home or self-care (01) ==
LOC: RADCTMAIN 14:56
PROVIDERS: ATTEND Family Medicine
DX: J44.9 Chronic obstructive pulmonary disease, unspecified (principal); K76.0 Fatty (change of) liver, not elsewhere classified; I51.7 Cardiomegaly; I34.81 Nonrheumatic mitral (valve) annulus calcification; I34.0 Nonrheumatic mitral (valve) insufficiency
CPT/HCPCS: 71250; 93306

== ENCOUNTER → 2024-09-05 | Outpatient (CLI) | payer MEDICARE, OTHER | LOC: CPPFTMAIN 08:34 | PROVIDERS: ATTEND Family Medicine | DX: J44.9 Chronic obstructive pulmonary disease, unspecified (principal); R07.9 Chest pain, unspecified | CPT/HCPCS: 94060; 94726; 94729 ==

== ENCOUNTER → 2024-10-10 | Outpatient (CLI) | payer MEDICARE, OTHER ==
[2024-10-10 10:47] LABS: Influenza A Detected (Not Detectd); Influenza B Not Detected (Not Detectd); RSV Not Detected (Not Detectd)
== END | disposition home or self-care (01) ==
LOC: LABWHC1 09:53
PROVIDERS: ATTEND Family Medicine
DX: Z20.822 Contact with and (suspected) exposure to COVID-19 (principal); B59 Pneumocystosis
CPT/HCPCS: 87636